=== PATIENT | female | born 1985 | race Caucasian/White ===

== ENCOUNTER 2019-03-20 09:26 | Day surgery (SDC) | payer BC ==
[~2019-03-20] VITALS: Ht 157.5 cm; Wt 54.4 kg
[2019-03-20] VITALS (8 sets, daily range): BP systolic 96–125; BP diastolic 63–84
[~2019-03-20 09:26] MED LIST: INDOCYANINE GREEN 25 MG VIAL IV ONE; NO HOME MEDS; cefazolin/dext.iso 2gm/100ml 100 ML IV ONE; famotidine 10mg tablet PO ONE; ringers solution, lacted 1,000 ML IV SCH
[2019-03-20] MEDS ORDERED: ONDA8TAB6 PO (10:01)
[2019-03-20 10:26] LABS: BASOPHILS % (AUTO) 0.6 % (0-1); EOSINOPHILS % (AUTO) 0.6 % (0-6); LYMPHOCYTES # (AUTO) 1.5 X10'3 (1.1-4.8); LYMPHOCYTES % (AUTO) 22.1 % (21-51); MEAN CORPUSCULAR HEMOGLOBIN 31.5 PG (27.0-31.0); MEAN CORPUSCULAR HGB CONC 34.1 g/dL (33.0-36.5); MEAN CORPUSCULAR VOLUME 92.4 FL (78-98); MEAN PLATELET VOLUME 9.8 FL (7.4-10.4); MONOCYTES # (AUTO) 0.4 X10'3 (0-0.9); MONOCYTES % (AUTO) 5.4 % (2-12); NEUTROPHILS # (AUTO) 4.7 X10'3 (1.8-7.7); NEUTROPHILS % (AUTO) 71.3 % (42-75); PRE OP HEMATOCRIT 40.9 % (35.0-45.0); PRE OP PLATELET COUNT 214 X10'3 (140-440); RED BLOOD COUNT 4.42 X10'6 (4.20-5.60); RED CELL DISTRIBUTION WIDTH 13.1 % (11.5-14.5)
[2019-03-20 10:45] LABS: ALBUMIN 4.3 G/DL (3.4-5.0); ALBUMIN/GLOBULIN RATIO 1.2 (1.1-1.5); ALKALINE PHOSPHATASE 52 IU/L (46-116); BLOOD UREA NITROGEN 11 MG/DL (7-18); BUN/CREATININE RATIO 16.2 (6.6-38.0); CHLORIDE 106 MMOL/L (99-107); CREATININE 0.68 MG/DL (0.40-0.90); PRE OP ALT 23 U/L (30-65); PRE OP ANION GAP 8 (8-16); PRE OP AST 17 U/L (10-37); PRE OP BILIRUB, TOTAL 1.3 MG/DL (0.0-1.0); PRE OP GLUCOSE 76 MG/DL (70-104); PRE OP POTASSIUM 3.5 MMOL/L (3.4-5.1); PRE OP SODIUM 142 MMOL/L (135-145); eGFR > 90 ML/MIN
[2019-03-20 11:32] LABS: HCG SERUM QL NEGATIVE
[2019-03-20] MEDS ORDERED: fentaNYL/PF 50MCG/1 ML 2ML syringe ONE (12:24)
[2019-03-20] MEDS ORDERED: midazolam 2 mg/2 ml injection ONE (12:26)
[2019-03-20] MEDS ORDERED: rocuronium 10mg/ml inj IV ONE (12:27)
[2019-03-20] MEDS ORDERED: propofol inj 20 ML IV ONE (12:27)
[2019-03-20] MEDS ORDERED: dexamethasone sod phosphate 4mg/ml inj. ONE (12:27)
[2019-03-20] MEDS ORDERED: LIDOcaine 2% (20mg/ml) 5ml vial ONE (12:27)
[2019-03-20] MEDS ORDERED: BUPIVAcaine/PF 2.5 mg/ml (0.25%) 30ml vial ONE (12:32)
[2019-03-20] MEDS ORDERED: LIDOcaine 1% 30ml preserv. free vial ONE (12:32)
[2019-03-20] MEDS ORDERED: ondansetron/PF 4mg/2ml inj ONE (13:00)
[2019-03-20] MEDS ORDERED: sevoflurane 250ml liquid IH ONE (13:00)
[2019-03-20] MEDS ORDERED: ondansetron/PF 4mg/2ml inj IV PRN (13:30)
[2019-03-20] MEDS ORDERED: morphine 4 MG/ML inj SYRINge IV PRN ×2 (13:30)
[2019-03-20] MEDS ORDERED: proCHLORperazine 10 MG/2 ml inj IV PRN (13:30)
[2019-03-20] MEDS ORDERED: ringers solution, lacted 1,000 ML IV SCH (13:30)
[2019-03-20] MEDS ORDERED: meperidine/PF 25mg/ml syringe IV PRN ×3 (13:30)
--- NOTE | 2019-03-20 14:14 | NUR ---
Received from OR via , accompanied by Anesthesiologist DR DENNEY and report given by Anesthesiolgist. AWAKENS TO VOICE. VITALS STABLE. DRESSINGS DI. ROSALIE PAIN. ABD SOFT.
[2019-03-20] MEDS ORDERED: HYDROcodone/acetaminophen 5mg/325mg tablet PO PRN (14:20)
[2019-03-20] MEDS ORDERED: ketorolac trometh. 30mg/ml inj. IV ONE (14:20)
[2019-03-20] MEDS ORDERED: HYDROcodone/acetaminophen 10/325mg tab PO PRN (14:20)
[2019-03-20] MEDS ORDERED: neostigmine methylsulfate 1 MG/ML 10ml vial ONE (15:23)
[2019-03-20] MEDS ORDERED: glycopyrrolate 0.2mg/ml inj ONE (15:23)
--- NOTE | 2019-03-20 15:24 | NUR ---
AWAKE AND ORIENTED. VITALS STABLE. DRESSINGS DI. ROSALIE PAIN. HOME WITH HER SPOUSE AT THIS TIME.
== END 2019-03-20 15:24 | disposition home or self-care (01) ==
LOC: PRE-OP 09:26
PROVIDERS: ATTEND Surgery
DX: K80.00 Calculus of gallbladder with acute cholecystitis without obstruction (principal); Z87.891 Personal history of nicotine dependence; Z79.899 Other long term (current) drug therapy
CPT/HCPCS: 36415; 47563; 80053; 82948; 84703; 85025; J1100; J1885; J2001; J2175; J2250; J2405; J2704; J2710; J3010; J3490; J7120; S2900; A4215; A4618; A7000